=== PATIENT | male | born 2000 | race African-American/Black ===

== ENCOUNTER 2024-02-06 21:53 | Emergency (ER) | payer BC, OTHER ==
--- NOTE | 2024-02-06 22:16 | ER ---
Nurse's Notes [facility] Name: Carroll Pham Age: 23 yrs Sex: Male : 2000 Arrival Date: 02/06/2024 Time: 21:53 Bed 10 Private MD: Diagnosis: Person with feared health complaint in whom no diagnosis is made Presentation: 02/05 22:12 Chief complaint: Patient states: Outside working and felt something fly into his left cm10 ear. Pt states that he does not feel anything in his ear anymore. Coronavirus screen: Client denies travel out of the [place] in the last 14 days. At this time, the client does not indicate any symptoms associated with coronavirus-19. Ebola Screen: Patient denies travel to an Ebola-affected area in the 21 days before illness onset. No symptoms or risks identified at this time. Initial Sepsis Screen: Does the patient meet any 2 criteria? No. Patient's initial sepsis screen is negative. Does the patient have a suspected source of infection? No. Patient's initial sepsis screen is negative. Risk Assessment: Do you want to hurt yourself or someone else? Patient reports no desire to harm self or others. Onset of symptoms Onset of symptoms was February 06, 2024. 22:12 Method Of Arrival: Ambulatory cm10 22:12 Acuity: BERTHA 4 cm10 Triage Assessment: 22:10 General: Appears in no apparent distress. comfortable, Behavior is calm, cooperative. kb3 Pain: Denies pain. EENT: Ear canal clear on left ear. Historical: - Allergies: 22:13 No Known Allergies; cm10 - Home Meds: 22:13 None [Active]; cm10 - PMHx: 22:13 None; cm10 - PSHx: 22:13 None; cm10 - Immunization history:: Adult Immunizations up to date. - Infectious Disease History:: Denies. - Social history:: Smoking status: Patient denies any tobacco usage or history of. Screenin:22 [facility] ED Fall Risk Assessment (Adult) History of falling in the last 3 months, kb3 including since admission No falls in past 3 months (0 pts) Confusion or Disorientation No (0 pts) Intoxicated or Sedated No (0 pts) Impaired Gait No (0 pts) Mobility Assist Device Used No (0 pt) Altered Elimination No (0 pt) Score/Fall Risk Level 0 - 2 = Low Risk Oriented to surroundings. Abuse screen: Denies threats or abuse. Denies injuries from another. Nutritional screening: No deficits noted. Tuberculosis screening: No symptoms or risk factors identified. Assessment: 22:22 General: Appears in no apparent distress. comfortable, Behavior is calm, cooperative. kb3 Pain: Denies pain. EENT: Ear canal clear on left ear. Vital Signs: 22:10 BP 124 / 70; Pulse 80; Resp 18; Temp 98; Pulse Ox 100% ; kb3 22:14 Weight 95.25 kg; Height 5 ft. 7 in. ; cm10 22:14 Body Mass Index 32.89 (95.25 kg, 170.18 cm) cm10 ED Course: 21:55 Patient arrived in ED. jj6 22:13 Triage completed. cm10 22:14 Arm band placed on Patient placed in an exam room, on a stretcher. cm10 22:15 Valarie Chavez FNP-C is [facility]. kb 22:15 Shahbaz Almeida MD is Attending Physician. kb 22:22 Patient has correct armband on for positive identification. Provided Education on: Plan kb3 of care. 22:22 No provider procedures requiring assistance completed. Patient did not have IV access kb3 during this emergency room visit. Administered Medications: No medications were administered Medication: 22:22 VIS not applicable for this client. kb3 Outcome: 22:16 Discharge ordered by MD. kb 22:24 Discharged to home ambulatory, kb3 22:24 Condition: stable 22:24 Discharge instructions given to patient, Instructed on discharge instructions, follow up and referral plans. Demonstrated understanding of instructions, 22:24 Patient left the ED. kb3 Signatures: Valarie Chavez FNP-C FNP-Becky Dueñas jj6 Polina Wadsworth, RN RN kb3 Clementine Liu, AVERY RN cm10
[2024-02-06 22:33] VITALS: BP 124/70; TEMP 98; O2SAT 100
--- NOTE | 2024-02-07 22:25 | EDPHYS ---
Physician Documentation [facility] Name: Carroll Pham Age: 23 yrs Sex: Male : 2000 Arrival Date: 02/06/2024 Time: 21:53 Bed 10 Private MD: ED Physician Shahbaz Almeida HPI: 02/05 22:37 This 23 yrs old Black Male presents to ER via Ambulatory with complaints of Foreign kb Body In Ear. 22:37 Pt is a 23 year old male who presents for possible foreign body in left ear canal. Pt kb states he felt a bug fly into his left ear prior to arrival. States he doesn't feel anything in there anymore, but doesn't know if it came out or not. . Historical: - Allergies: 22:13 No Known Allergies; cm10 - Home Meds: 22:13 None [Active]; cm10 - PMHx: 22:13 None; cm10 - PSHx: 22:13 None; cm10 - Immunization history:: Adult Immunizations up to date. - Infectious Disease History:: Denies. - Social history:: Smoking status: Patient denies any tobacco usage or history of. ROS: 22:37 Constitutional: As per HPI kb Exam: 22:37 Constitutional: This is a well developed, well nourished patient who is awake, alert, kb and in no acute distress. Head/Face: Normocephalic, atraumatic. Cardiovascular: Regular rate Respiratory: Respirations even and unlabored. No increased work of breathing. Talking in full sentences Skin: Warm, dry with normal turgor. Normal color. MS/ Extremity: Pulses equal, no cyanosis. Neurovascular intact. Full, normal range of motion. Neuro: Awake and alert, GCS 15, oriented to person, place, time, and situation. Moves all extremities. Normal gait. 22:37 ENT: External ear(s): are unremarkable, Ear canal(s): are normal, TM's: are normal, Vital Signs: 22:10 BP 124 / 70; Pulse 80; Resp 18; Temp 98; Pulse Ox 100% ; kb3 22:14 Weight 95.25 kg; Height 5 ft. 7 in. ; cm10 22:14 Body Mass Index 32.89 (95.25 kg, 170.18 cm) cm10 MDM: 22:15 Patient medically screened. kb 22:37 Differential diagnosis: FB in ear canal, cerumen impaction. Data reviewed: vital signs, kb nurses notes. Counseling: I had a detailed discussion with the patient and/or guardian regarding the historical points, exam findings, and any diagnostic results supporting the discharge/admit diagnosis, the need for outpatient follow up, a family practitioner, to return to the emergency department if symptoms worsen or persist or if there are any questions or concerns that arise at home. ED course: No FB seen. Administered Medications: No medications were administered Disposition: 22:39 Chart complete. kb Disposition Summary: 02/06/24 22:16 Discharge Ordered Notes: Location: Home kb Condition: Stable kb Diagnosis - Person with feared health complaint in whom no diagnosis is made kb Followup: kb - With: Emergency Department - When: As needed - Reason: Worsening of condition Followup: kb - With: Private Physician - When: 2 - 3 days - Reason: Recheck today's complaints, Continuance of care, Re-evaluation by your physician Discharge Instructions: - Discharge Summary Sheet kb - Ear Foreign Body, [id number] kb Forms: - Medication Reconciliation Form kb - Antibiotic Education kb - Prescription Opioid Use kb - Patient Portal Instructions kb - Leadership Thank You Letter kb Signatures: Valarie Chavez FNP-C RAUL-Clementine Huddleston, RN RN cm10
== END 2024-02-06 22:24 | disposition home or self-care (01) ==
LOC: ER 21:53
DX: Z71.1 Person with feared health complaint in whom no diagnosis is made (principal)
CPT/HCPCS: 99282